=== PATIENT | female | born 1970 | race Caucasian/White ===

== ENCOUNTER → 2022-04-17 | Day surgery (SDC) | payer OTHER | END | disposition home or self-care (01) | LOC: JMAMMO-SUR 11:28 | PROVIDERS: ATTEND Physician Assistant | PROC: 0H9T3ZX Drainage of Right Breast, Percutaneous Approach, Diagnostic (ICD-10-PCS; principal; 2022-04-17) | DX: C50.911 Malignant neoplasm of unspecified site of right female breast (principal) | CPT/HCPCS: 19083; 87899; A4648 ==

== ENCOUNTER → 2022-05-03 | Day surgery (SDC) | payer OTHER | END | disposition home or self-care (01) | LOC: FRADUS-SUR 09:59 | PROVIDERS: ATTEND Registered Nurse | PROC: 0HBT3ZX Excision of Right Breast, Percutaneous Approach, Diagnostic (ICD-10-PCS; principal; 2022-05-03) | DX: N60.11 Diffuse cystic mastopathy of right breast (principal); N60.31 Fibrosclerosis of right breast; N60.81 Other benign mammary dysplasias of right breast; N64.89 Other specified disorders of breast; N63.13 Unspecified lump in the right breast, lower outer quadrant | CPT/HCPCS: 19085; 77065-TC; 88305-TC; A4648; A9579; C1887 ==